=== PATIENT | female | born 1990 | race Caucasian/White ===

== ENCOUNTER 2016-09-13 07:08 | Emergency (ER) | payer SELFPAY ==
[~2016-09-13] VITALS: Ht 160 cm; Wt 121.8 kg
[~2016-09-13 07:08] MED LIST: ALBUTEROL S2.5 MG/.5 IN; ALBUTEROL SUL0.083 % IN; ANTI-DIARRHE2 M1 PO; AYGESTIN5 MG PO; BACTRIM DS1 TAB PO; CARB/LEVO1 TA2; CEPHALEXIN500 M1 OR; CEPHALEXIN500 MG PO; DARVOCET-N 100100 MG OR; ERY-TAB333 MG OR; FLEXERIL PO; IBUPROFEN200 M1 OR; LORTAB 10 PO; LORTAB5 PO; NAPROSYN500 MG PO; NO; NO HOME MEDICATIONS; ORTHO TRI-CY OR; PROAIR HFA IN; PROVENTIL0.083 % IN; ROBITUSSIN AC OR; ROBITUSSIN AC10 ML OR; TYLENOL500 MG OR; ULTRAM50 M1 OR; ULTRAM50 M1 PO; ULTRAM50 MG OR; VENTOLIN HFA IN; ZITHROMAX250 MG OR; ZITHROMAX500 MG PO; ZOFRAN ODT4 MG SL; ZOFRAN4 MG/TAB PO; [UNRECOGNIZED DRUG - OTHER] OR; no meds
[2016-09-13 07:33] LABS: URINE BILIRUBIN - DIPSTICK NEGATIVE (NEGATIVE); URINE BLOOD DIPSTICK SMALL (NEGATIVE); URINE CLARITY CLEAR; URINE COLOR YELLOW; URINE GLUCOSE - DIPSTICK NEGATIVE (NEGATIVE); URINE KETONE NEGATIVE (NEGATIVE); URINE LEUK ESTERASE NEGATIVE (NEGATIVE); URINE NITRITE - DIPSTICK NEGATIVE (Negative); URINE PROTEIN - DIPSTICK NEGATIVE (NEG-TRACE); URINE UROBILINOGEN - DIPSTICK 0.2 E.U./dL (0.2)
[2016-09-13 07:50] LABS: URINE BACTERIA MODERATE hpf; URINE SQUAMOUS EPITHELIAL CELL FEW EPI/hpf (0-FEW); URINE WBC 0-2 WBC/hpf (0-5)
[2016-09-13 07:56] LABS: HEMATOCRIT 45.2 % (37.0-47.0); HEMOGLOBIN 14.8 g/dl (12.0-16.0); IMMATURE GRANULOCYTES 0.4 % (0.0-1.0); MEAN CORPUSCULAR HGB 30.5 pG CALC (26.0-32.0); MEAN CORPUSCULAR HGB CONC 32.7 g/L CALC (32.0-36.0); NEUT# 5.97 thou/uL (2.00-7.15); RED BLOOD COUNT 4.86 mill/uL (4.20-5.60)
[2016-09-13 08:10] LABS: ALBUMIN 4.1 g/dL (3.2-5.0); ALKALINE PHOSPHATASE 88 u/l (38-126); ANION GAP 15 (6-22 (CALC)); BILIRUBIN, TOTAL 0.5 mg/dL (0.0-1.4); BUN 13 mg/dL (7-17); BUN/CREATININE RATIO 21 (12-20 (CALC)); CALCIUM 9.2 mg/dL (8.4-10.2); CARBON DIOXIDE 24 mmol/l (22-30); CHLORIDE 107 mmol/l (95-108); CREATININE 0.6 mg/dL (0.5-1.0); GFR > 60 ML/MIN (>=60 (CALC)); GFR FOR AFR.AMER. > 60 ML/MIN (>=60 (CALC)); GLUCOSE 100 mg/dL (65-105); POTASSIUM 4.5 mmol/l (3.5-5.1); SGOT/AST 20 u/l (14-36); SGPT/ALT 38 u/l (9-52); SODIUM 142 mmol/l (137-146); TOTAL PROTEIN 7.5 g/dL (6.3-8.2)
[2016-09-13] MEDS ORDERED: CIPROFLOXACN500 MG PO (09:36)
[2016-09-13] MEDS ORDERED: ULTRAM50 M1 PO (09:36)
[2016-09-13 09:47] VITALS: BP 122/77
== END 2016-09-13 09:55 | disposition home or self-care (01) | DRG 690 ==
LOC: ED 07:08
PROVIDERS: Emergency Medicine
DX: N39.0 Urinary tract infection, site not specified (principal); N20.0 Calculus of kidney; R10.31 Right lower quadrant pain; J45.909 Unspecified asthma, uncomplicated; F17.210 Nicotine dependence, cigarettes, uncomplicated
CPT/HCPCS: Q9967

== ENCOUNTER 2017-06-16 21:29 | Emergency (ER) | payer SELFPAY ==
[~2017-06-16] VITALS: Ht 162.6 cm; Wt 127.0 kg
[~2017-06-16 21:29] MED LIST changes: +CIPROFLOXACN500 MG PO
[2017-06-16] MEDS ORDERED: NAPROSYN500 MG PO (22:31)
[2017-06-16 23:22] VITALS: BP 115/68
== END 2017-06-16 23:30 | disposition home or self-care (01) | DRG 563 ==
LOC: ED 21:29
DX: S93.601A Unspecified sprain of right foot, initial encounter (principal); F17.210 Nicotine dependence, cigarettes, uncomplicated; X50.1XXA Overexertion from prolonged static or awkward postures, initial encounter; Y92.009 Unspecified place in unspecified non-institutional (private) residence as the place of occurrence of the external cause

== ENCOUNTER 2019-09-22 07:00 | Emergency (ER) | payer SELFPAY ==
[~2019-09-22] VITALS: Ht 162.6 cm; Wt 125.0 kg
[2019-09-22 09:02] VITALS: BP 98/61
== END 2019-09-22 09:17 | disposition home or self-care (01) | DRG 556 ==
LOC: ED 07:00
PROC: 2W3CX1Z Immobilization of Right Lower Arm using Splint (ICD-10-PCS; principal; 2019-09-22)
DX: M79.631 Pain in right forearm (principal); F17.200 Nicotine dependence, unspecified, uncomplicated; W23.0XXA Caught, crushed, jammed, or pinched between moving objects, initial encounter; Y92.009 Unspecified place in unspecified non-institutional (private) residence as the place of occurrence of the external cause

== ENCOUNTER 2020-03-28 12:58 | Emergency (ER) | payer BC ==
[~2020-03-28] VITALS: Ht 162.6 cm; Wt 117.0 kg
[2020-03-28 13:22] LABS: HEMATOCRIT 44.1 % (37.0-47.0); HEMOGLOBIN 14.8 g/dl (12.0-16.0); IMMATURE GRANULOCYTES 0.2 % (0.0-5.0); MEAN CORPUSCULAR HGB 31.9 pG CALC (26.0-32.0); MEAN CORPUSCULAR HGB CONC 33.6 g/dL CAL (32.0-36.0); NEUT# 5.65 thou/uL (2.00-7.15); RED BLOOD COUNT 4.64 mill/uL (4.20-5.60); RED CELL DISTRI WIDTH 11.6 % (11.5-15.5)
[2020-03-28] MEDS ORDERED: SYMBICORT1 AE1 IN (13:32)
[2020-03-28] MEDS ORDERED: PHENTERMINE15 MG PO (13:33)
[2020-03-28 13:47] LABS: HCG SERUM/URINE (NEG/POS) NEGATIVE (NEGATIVE)
[2020-03-28 13:54] LABS: ALBUMIN 4.6 g/dL (3.2-5.0); ALKALINE PHOSPHATASE 85 u/l (38-126); ANION GAP 16 (6-22 (CALC)); BILIRUBIN, TOTAL 0.4 mg/dL (0.0-1.4); BUN 14 mg/dL (7-17); BUN/CREATININE RATIO 19 (12-20 (CALC)); CARBON DIOXIDE 23 mmol/l (22-30); CHLORIDE 103 mmol/l (95-108); CREATININE 0.7 mg/dL (0.5-1.0); GFR > 60 ML/MIN (>=60 (CALC)); GFR FOR AFR.AMER. > 60 ML/MIN (>=60 (CALC)); LIPASE 68 u/l (23-300); POTASSIUM 4.1 mmol/l (3.5-5.1); SGOT/AST 27 u/l (14-36); SODIUM 137 mmol/l (137-146)
[2020-03-28 17:11] LABS: URINE BILIRUBIN - DIPSTICK NEGATIVE (NEGATIVE); URINE BLOOD DIPSTICK LARGE (NEGATIVE); URINE COLOR YELLOW; URINE GLUCOSE - DIPSTICK NEGATIVE (NEGATIVE); URINE KETONE NEGATIVE (NEGATIVE); URINE LEUK ESTERASE NEGATIVE (NEGATIVE); URINE NITRITE - DIPSTICK NEGATIVE (Negative); URINE PROTEIN - DIPSTICK NEGATIVE (NEG-TRACE); URINE UROBILINOGEN - DIPSTICK 0.2 E.U./dL (0.2)
[2020-03-28 17:29] LABS: URINE SQUAMOUS EPITHELIAL CELL FEW EPI/hpf (0-FEW); URINE WBC 0-2 WBC/hpf (0-5)
[2020-03-28] MEDS ORDERED: PROVENTIL0.083 % IN (17:34)
[2020-03-28] MEDS ORDERED: DOXYCYCL HYC100 M4 PO (17:34)
[2020-03-28] MEDS ORDERED: PREDNISONE50 MG PO (17:34)
[2020-03-28 17:57] VITALS: BP 109/66
== END 2020-03-28 18:10 | disposition home or self-care (01) | DRG 153 ==
LOC: ED 12:58
PROVIDERS: Family Medicine
DX: J06.9 Acute upper respiratory infection, unspecified (principal); J45.901 Unspecified asthma with (acute) exacerbation; R07.9 Chest pain, unspecified; F17.200 Nicotine dependence, unspecified, uncomplicated; Z20.822 Contact with and (suspected) exposure to COVID-19

== ENCOUNTER 2020-07-21 03:51 | Emergency (ER) | payer BC ==
[~2020-07-21 03:51] MED LIST changes: +DOXYCYCL HYC100 M4 PO; +PHENTERMINE15 MG PO; +PREDNISONE50 MG PO; +SYMBICORT1 AE1 IN
[2020-07-21 04:27] LABS: URINE BILIRUBIN - DIPSTICK NEGATIVE (NEGATIVE); URINE BLOOD DIPSTICK TRACE-LYSED (NEGATIVE); URINE COLOR YELLOW; URINE GLUCOSE - DIPSTICK NEGATIVE (NEGATIVE); URINE KETONE TRACE mg/dL (NEGATIVE); URINE LEUK ESTERASE NEGATIVE (NEGATIVE); URINE PROTEIN - DIPSTICK NEGATIVE (NEG-TRACE); URINE SPECIFIC GRAVITY >=1.030
[2020-07-21 04:29] LABS: URINE NITRITE - DIPSTICK NEGATIVE (Negative)
[2020-07-21 04:29] LABS: HEMATOCRIT 45.7 % (37.0-47.0); HEMOGLOBIN 15.1 g/dl (12.0-16.0); IMMATURE GRANULOCYTES 0.2 % (0.0-5.0); MEAN CELL VOLUME 95.6 fL CALC (80.0-100.0); MEAN CORPUSCULAR HGB 31.6 pG CALC (26.0-32.0); NEUT# 4.98 thou/uL (2.00-7.15); RED BLOOD COUNT 4.78 mill/uL (4.20-5.60); RED CELL DISTRI WIDTH 11.9 % (11.5-15.5)
[2020-07-21 04:47] LABS: ALBUMIN 4.4 g/dL (3.2-5.0); ALKALINE PHOSPHATASE 81 u/l (38-126); AMYLASE 63 u/l (30-110); ANION GAP 10 (6-22 (CALC)); BILIRUBIN, TOTAL 0.5 mg/dL (0.0-1.4); BUN 16 mg/dL (7-17); BUN/CREATININE RATIO 24 (12-20 (CALC)); CARBON DIOXIDE 26 mmol/l (22-30); CHLORIDE 103 mmol/l (95-108); CREATININE 0.7 mg/dL (0.5-1.0); GFR > 60 ML/MIN (>=60 (CALC)); GFR FOR AFR.AMER. > 60 ML/MIN (>=60 (CALC)); LIPASE 63 u/l (23-300); POTASSIUM 4.1 mmol/l (3.5-5.1); SGOT/AST 25 u/l (14-36); SODIUM 136 mmol/l (137-146); TOTAL PROTEIN 7.9 g/dL (6.3-8.2)
[2020-07-21] MEDS ORDERED: ORPHENADRINE100 MG PO (05:18)
[2020-07-21] MEDS ORDERED: VOLTAREN75 MG PO (05:18)
[2020-07-21 05:59] VITALS: BP 128/72
== END 2020-07-21 05:59 | disposition home or self-care (01) | DRG 563 ==
LOC: ED 03:51
PROVIDERS: Family Medicine
DX: S39.012A Strain of muscle, fascia and tendon of lower back, initial encounter (principal); F17.200 Nicotine dependence, unspecified, uncomplicated; X58.XXXA Exposure to other specified factors, initial encounter
CPT/HCPCS: J0131

== ENCOUNTER 2021-01-26 20:29 | Emergency (ER) | payer BC ==
[~2021-01-26] VITALS: Ht 162.6 cm; Wt 117.0 kg
[~2021-01-26 20:29] MED LIST changes: +ORPHENADRINE100 MG PO; +VOLTAREN75 MG PO
[2021-01-26] MEDS ORDERED: CIPROFLOXACN500 MG PO (21:20)
[2021-01-26] MEDS ORDERED: ONDANSETRON4 MG PO (21:20)
[2021-01-26 21:32] LABS: HEMOGLOBIN 17.3 g/dl (12.0-16.0); IMMATURE GRANULOCYTES 0.2 % (0.0-5.0); MEAN CELL VOLUME 93.4 fL CALC (80.0-100.0); MEAN CORPUSCULAR HGB 31.7 pG CALC (26.0-32.0); MEAN CORPUSCULAR HGB CONC 33.9 g/dL CAL (32.0-36.0); NEUT# 10.35 thou/uL (2.00-7.15); RED BLOOD COUNT 5.46 mill/uL (4.20-5.60); RED CELL DISTRI WIDTH 11.6 % (11.5-15.5)
[2021-01-26 21:40] LABS: ALBUMIN 4.4 g/dL (3.2-5.0); ALKALINE PHOSPHATASE 97 u/l (38-126); AMYLASE 67 u/l (30-110); ANION GAP 14 (6-22 (CALC)); BUN 13 mg/dL (7-17); BUN/CREATININE RATIO 18 (12-20 (CALC)); CARBON DIOXIDE 26 mmol/l (22-30); CHLORIDE 102 mmol/l (95-108); CREATININE 0.7 mg/dL (0.5-1.0); GFR > 60 ML/MIN (>=60 (CALC)); GFR FOR AFR.AMER. > 60 ML/MIN (>=60 (CALC)); LIPASE 45 u/l (23-300); POTASSIUM 4.2 mmol/l (3.5-5.1); SGOT/AST 27 u/l (14-36); SODIUM 137 mmol/l (137-146); TOTAL PROTEIN 8.2 g/dL (6.3-8.2)
[2021-01-26 21:41] LABS: BILIRUBIN, TOTAL 0.9 mg/dL (0.0-1.4)
[2021-01-26 22:34] LABS: URINE BILIRUBIN - DIPSTICK NEGATIVE (NEGATIVE); URINE BLOOD DIPSTICK NEGATIVE (NEGATIVE); URINE COLOR YELLOW; URINE GLUCOSE - DIPSTICK NEGATIVE (NEGATIVE); URINE KETONE NEGATIVE (NEGATIVE); URINE LEUK ESTERASE NEGATIVE (NEGATIVE); URINE PH 6.5 (4.5-8.0); URINE PROTEIN - DIPSTICK NEGATIVE (NEG-TRACE); URINE SPECIFIC GRAVITY <=1.005; URINE UROBILINOGEN - DIPSTICK 0.2 E.U./dL (0.2)
[2021-01-26 22:39] LABS: URINE NITRITE - DIPSTICK NEGATIVE (Negative)
[2021-01-26] MEDS ORDERED: ULTRAM50 M1 PO (22:56)
[2021-01-26 23:31] VITALS: BP 127/82
== END 2021-01-27 00:20 | disposition home or self-care (01) | DRG 392 ==
LOC: ED 20:29
PROVIDERS: Emergency Medicine
DX: K52.9 Noninfective gastroenteritis and colitis, unspecified (principal); F17.200 Nicotine dependence, unspecified, uncomplicated; Z20.822 Contact with and (suspected) exposure to COVID-19
CPT/HCPCS: Q9967; S0164